=== PATIENT | male | born 1970 | race Caucasian/White ===

== ENCOUNTER 2021-09-16 11:43 | Inpatient (IN) ==
[~2021-09-16 11:43] MED LIST: *HR* HYDROmorphone PF 0.5 MG/0.5 ML SYRINGE IVP PRN; *HR* Meperidine 25 MG/ML SYRINGE IVP PRN; Acetaminophen IV 1,000 MG/100 ML BAG IVPB ONE; Ondansetron 4 MG/2 ML VIAL IVP PRN
[2021-09-16] MEDS ORDERED: cefOXitin 2,000 MG in 0.9 % Sodium Chloride Mini Bag 100 ML IVPB ONE (12:05)
[2021-09-16] MEDS ORDERED: Ringers Solution, Lactated 1,000 ML IVC SCH (12:15)
[2021-09-16] MEDS ORDERED: Famotidine 20 MG/2 ML VIAL IVP ONE (12:19)
[2021-09-16 13:24] LABS: Basophils # 0.1 K/mcL (0.0-0.2); Basophils % 0.5 %; Eosinophils # 0.1 K/mcL (0.0-0.6); Eosinophils % 0.5 %; Hematocrit 50.2 % (37.5-50.1); Immature Granulocytes % 0.3 % (0-4); Lymphocytes # 1.9 K/mcL (0.6-4.6); Lymphocytes % 19.4 %; Mean Corpuscular HGB Conc 33.9 g/dL (31.6-35.5); Mean Corpuscular Hemoglobin 31.9 pg (28.0-33.3); Mean Corpuscular Volume 94.2 fL (83.0-100.0); Mean Platelet Volume 9.7 fL (9.4-12.4); Monocytes # 0.7 K/mcL (0.0-1.3); Monocytes % 7.4 %; Neutrophils # 6.9 K/mcL (1.6-8.9); Platelet Count 238 K/mcL (140-400); Red Blood Count 5.33 M/mcL (4.19-5.50); Red Cell Distribution Width 12.5 % (11.5-14.5); Segmented Neutrophils % 71.9 %; White Blood Count 9.6 K/mcL (4.3-11.1)
[2021-09-16 13:39] LABS: BUN/Creatinine Ratio 12 (6-26); Blood Urea Nitrogen 16 mg/dL (6-20); Calcium 9.6 mg/dL (8.6-10.3); Carbon Dioxide 21 mEq/L (23-29); Chloride 104 mEq/L (98-107); Glucose 78 mg/dL (70-105); Osmolality,Calculated 282 (280-300); Potassium 4.5 mEq/L (3.5-5.1); Sodium 136 mEq/L (136-145); eGFR For African Americans > 60 (> 60); eGFR For Non-African Americans 58 (> 60)
[2021-09-16] MEDS ORDERED: Famotidine 20 MG TABLET PO ONE (14:00)
[2021-09-16] MEDS ORDERED: Acetaminophen IV 1,000 MG/100 ML BAG IVPB ONE (14:30)
[2021-09-16] MEDS ORDERED: *HR* Rocuronium Bromide 50 MG/5 ML VIAL ONE (15:06)
[2021-09-16] MEDS ORDERED: *HR* Midazolam HCl 2 MG/2 ML VIAL ONE (15:06)
[2021-09-16] MEDS ORDERED: Ondansetron 4 MG/2 ML VIAL ONE (15:06)
[2021-09-16] MEDS ORDERED: *HR* Propofol 200 MG/20 ML VIAL IVP ONE (15:06)
[2021-09-16] MEDS ORDERED: Lidocaine -MPF 4% 5 ML AMPUL ONE (15:06)
[2021-09-16] MEDS ORDERED: *HR* FentaNYL (PF) 100 MCG/2 ML VIAL ONE (15:06)
[2021-09-16] MEDS ORDERED: Lidocaine -MPF 2% 2 ML VIAL ONE (15:08)
[2021-09-16] MEDS ORDERED: *HR* HYDROMORPHONE 2 MG/ML VIAL ONE (15:58)
[2021-09-16] MEDS ORDERED: Sugammadex Sodium 200 MG/2 ML VIAL IV ONE (17:17)
[2021-09-16] MEDS ORDERED: Ondansetron 4 MG/2 ML VIAL IVP PRN (21:57)
[2021-09-16] MEDS ORDERED: Naloxone 0.4 MG/ML INJ IVP PRN (21:57)
[2021-09-16] MEDS ORDERED: *HR* HYDROmorphone 20 MG/20 ML PCA IVC PRN (21:57)
[2021-09-16] MEDS: Ketorolac 30 MG/ML VIAL IVP SCH (22:09)
[2021-09-16] MEDS: 0.9 % Sodium Chloride 1,000 ML IVC SCH (22:31)
[2021-09-16] MEDS: cefOXitin 1,000 MG in Water for inj. (sterile) 10 ML IVP SCH (23:32)
[2021-09-17] MEDS: Ketorolac 30 MG/ML VIAL IVP SCH ×4 (03:23→22:56)
[2021-09-17 04:11] LABS: Immature Granulocytes % 0.3 % (0-4); Lymphocytes # 0.8 K/mcL (0.6-4.6); Lymphocytes % 9.2 %; Mean Corpuscular HGB Conc 32.8 g/dL (31.6-35.5); Mean Corpuscular Hemoglobin 31.9 pg (28.0-33.3); Mean Platelet Volume 9.7 fL (9.4-12.4); Monocytes # 0.3 K/mcL (0.0-1.3); Platelet Count 220 K/mcL (140-400); Red Blood Count 4.74 M/mcL (4.19-5.50); Red Cell Distribution Width 12.4 % (11.5-14.5); Segmented Neutrophils % 87.5 %; White Blood Count 9.2 K/mcL (4.3-11.1)
[2021-09-17 04:15] LABS: Hemoglobin 15.1 g/dL (12.9-16.9)
[2021-09-17 04:36] LABS: BUN/Creatinine Ratio 18 (6-26); Blood Urea Nitrogen 21 mg/dL (6-20); Calcium 8.2 mg/dL (8.6-10.3); Carbon Dioxide 22 mEq/L (23-29); Chloride 102 mEq/L (98-107); Glucose 129 mg/dL (70-105); Osmolality,Calculated 281 (280-300); Potassium 4.7 mEq/L (3.5-5.1); Sodium 133 mEq/L (136-145); eGFR For African Americans > 60 (> 60); eGFR For Non-African Americans > 60 (> 60)
[2021-09-17] MEDS: cefOXitin 1,000 MG in Water for inj. (sterile) 10 ML IVP SCH ×2 (07:20→15:08)
[2021-09-17] MEDS: Nicotine 21 MG PATCH.TD24 TD SCH (09:55)
[2021-09-17] MEDS: 0.9 % Sodium Chloride 1,000 ML IVC SCH ×2 (09:55→22:57)
[2021-09-17] MEDS: *HR* Heparin 5,000 UNIT/ML VIAL SQ SCH (17:06)
[2021-09-18] MEDS: *HR* Heparin 5,000 UNIT/ML VIAL SQ SCH ×2 (05:12→17:39)
[2021-09-18] MEDS: Ketorolac 30 MG/ML VIAL IVP SCH ×4 (05:20→22:56)
[2021-09-18 05:25] LABS: Basophils % 0.1 %; Hematocrit 37.9 % (37.5-50.1); Immature Granulocytes % 0.4 % (0-4); Lymphocytes # 1.8 K/mcL (0.6-4.6); Lymphocytes % 16.5 %; Mean Corpuscular Hemoglobin 32.7 pg (28.0-33.3); Mean Corpuscular Volume 95.9 fL (83.0-100.0); Mean Platelet Volume 9.9 fL (9.4-12.4); Neutrophils # 8.1 K/mcL (1.6-8.9); Platelet Count 201 K/mcL (140-400); Red Blood Count 3.95 M/mcL (4.19-5.50); Red Cell Distribution Width 12.7 % (11.5-14.5)
[2021-09-18 05:26] LABS: Hemoglobin 12.9 g/dL (12.9-16.9)
[2021-09-18 05:38] LABS: BUN/Creatinine Ratio 21 (6-26); Blood Urea Nitrogen 21 mg/dL (6-20); Calcium 8.1 mg/dL (8.6-10.3); Carbon Dioxide 29 mEq/L (23-29); Chloride 104 mEq/L (98-107); Glucose 119 mg/dL (70-105); Osmolality,Calculated 286 (280-300); Potassium 4.9 mEq/L (3.5-5.1); Sodium 136 mEq/L (136-145); eGFR For African Americans > 60 (> 60); eGFR For Non-African Americans > 60 (> 60)
[2021-09-18] MEDS: Nicotine 21 MG PATCH.TD24 TD SCH (09:31)
[2021-09-18] MEDS: 0.9 % Sodium Chloride 1,000 ML IVC SCH (19:02)
[2021-09-19] MEDS: 0.9 % Sodium Chloride 1,000 ML IVC SCH (00:05)
[2021-09-19] MEDS: *HR* Heparin 5,000 UNIT/ML VIAL SQ SCH ×2 (05:28→17:33)
[2021-09-19] MEDS: Ketorolac 30 MG/ML VIAL IVP SCH (05:28)
[2021-09-19 06:43] LABS: Basophils % 0.3 %; Eosinophils # 0.1 K/mcL (0.0-0.6); Eosinophils % 0.6 %; Hematocrit 37.9 % (37.5-50.1); Hemoglobin 12.5 g/dL (12.9-16.9); Immature Granulocytes % 0.3 % (0-4); Lymphocytes # 2.5 K/mcL (0.6-4.6); Lymphocytes % 26.4 %; Mean Corpuscular Hemoglobin 32.3 pg (28.0-33.3); Mean Corpuscular Volume 97.9 fL (83.0-100.0); Mean Platelet Volume 10.2 fL (9.4-12.4); Monocytes # 1.1 K/mcL (0.0-1.3); Monocytes % 11.6 %; Neutrophils # 5.8 K/mcL (1.6-8.9); Platelet Count 200 K/mcL (140-400); Red Blood Count 3.87 M/mcL (4.19-5.50); Segmented Neutrophils % 60.8 %; White Blood Count 9.6 K/mcL (4.3-11.1)
[2021-09-19] MEDS ORDERED: Acetaminophen 325 MG TABLET PO PRN (09:03)
[2021-09-19] MEDS: Nicotine 21 MG PATCH.TD24 TD SCH (09:26)
[2021-09-19] MEDS: Metoclopramide 20 MG in 0.9 % Sodium Chloride 50 ML IVPB SCH ×2 (11:40→17:58)
[2021-09-19] MEDS: Ibuprofen 600 MG TABLET PO SCH (17:33)
[2021-09-20] MEDS: Metoclopramide 20 MG in 0.9 % Sodium Chloride 50 ML IVPB SCH ×2 (02:22→10:19)
[2021-09-20] MEDS: *HR* Heparin 5,000 UNIT/ML VIAL SQ SCH (05:20)
[2021-09-20] MEDS: Ibuprofen 600 MG TABLET PO SCH ×2 (08:07→08:12)
[2021-09-20] MEDS: Nicotine 21 MG PATCH.TD24 TD SCH (08:12)
[2021-09-20 09:37] VITALS: BP 122/78; PULSE 90; TEMP 97.9; O2SAT 96
== END 2021-09-20 11:33 | disposition home or self-care (01) | DRG 331 ==
LOC: SAMDAY 11:43 → 3ANU 18:30
PROVIDERS: ADMIT Surgery; ATTEND Surgery